=== PATIENT | female | born 1985 | race Hispanic/Latino ===

== ENCOUNTER 2022-09-26 23:17 | Emergency (ER) | payer OTHER ==
[~2022-09-26] VITALS: Ht 167.6 cm; Wt 97.5 kg
[2022-09-26 23:52] LABS: BASOPHILS % (AUTO) 0.4 % (0.0-5.0); EOSINOPHILS % (AUTO) 1.9 % (0.0-8.0); HEMATOCRIT 41.3 % (36-48); LYMPHOCYTES % (AUTO) 50.3 % (21.0-51.0); MEAN CORPUSCULAR HEMOGLOBIN 30.8 pg (27.0-33.0); MEAN CORPUSCULAR HGB CONC 33.9 g/dL (32.0-36.0); MONOCYTES % (AUTO) 7.3 % (3.0-13.0); PLATELET COUNT (AUTO) 260 K/uL (130-400); RED BLOOD CELL COUNT(AUTO) 4.54 MIL/uL (4.00-5.50); RED CELL DISTRIBUTION WIDTH 13.1 % (11.0-15.5); WHITE BLOOD COUNT (AUTO) 7.8 K/uL (4.8-10.8)
[2022-09-26 23:58] LABS: APPEARANCE,URINE CLEAR (CLEAR); BILIRUBIN,URINE NEGATIVE (NEGATIVE); COLOR,URINE LIGHT-YELLOW (YELLOW); GLUCOSE, URINE (UA) NEGATIVE (NEGATIVE); KETONES,URINE NEGATIVE (NEGATIVE); LEUKOCYTE ESTERASE ,URINE NEGATIVE Leu/uL (NEGATIVE); NITRATE,URINE NEGATIVE (NEGATIVE); PROTEIN,URINE NEGATIVE (NEGATIVE); UROBILINOGEN,URINE 0.2 mg/dL (0.2-1.0)
[2022-09-27] MEDS ORDERED: ONDANSETRON 4MG INJ IVP ONE
[2022-09-27 00:03] LABS: MUCUS,URINE RARE LPF (None Seen); SQUAMOUS EPITHELIAL CELL,UR MOD /HPF (0-2)
[2022-09-27 00:10] LABS: CREATININE 0.7 mg/dL (0.5-1.5); POTASSIUM 3.8 mmol/L (3.5-5.1)
[2022-09-27 00:15] LABS: ALBUMIN 3.7 g/dL (3.5-5.0); TOTAL PROTEIN, SERUM 7.4 g/dL (6.0-8.3)
[2022-09-27] MEDS ORDERED: KETOROLAC 15MG/ML VIAL (15MG/ML) IV ONE (00:30)
[2022-09-27] MEDS ORDERED: LACTULOSE 20 GM/30 ML UDCUP PO ONE (02:00)
[2022-09-27] MEDS ORDERED: POLY17PO4 PO (02:00)
[2022-09-27 03:01] VITALS: BP 121/70
== END 2022-09-27 03:10 | disposition home or self-care (01) ==
LOC: EDH 23:17
DX: R10.12 Left upper quadrant pain (principal); K59.00 Constipation, unspecified; M54.9 Dorsalgia, unspecified; Z90.49 Acquired absence of other specified parts of digestive tract; Z98.890 Other specified postprocedural states
CPT/HCPCS: 99285; 96374; 80053; 83690; 85025; 81001; 81025; 36415; 74176; 96375; J2405; J1885

== ENCOUNTER 2024-02-22 12:58 | Emergency (ER) | payer SELFPAY ==
[~2024-02-22] VITALS: Ht 167.6 cm; Wt 104.3 kg
[~2024-02-22 12:58] MED LIST: POLY17PO4 PO
[2024-02-22 13:22] LABS: BASOPHILS # (AUTO) 0.03 K/uL (0.00-0.20); BASOPHILS % (AUTO) 0.5 % (0.0-5.0); EOSINOPHILS # (AUTO) 0.18 K/uL (0.00-0.70); EOSINOPHILS % (AUTO) 2.8 % (0.0-8.0); HEMATOCRIT 37.9 % (36-48); IMMATURE GRANULOCYTE ABSOLUTE 0.01 K/uL (0-1); LYMPHOCYTES # (AUTO) 2.7 K/uL (1.0-4.8); LYMPHOCYTES % (AUTO) 42.3 % (21.0-51.0); MEAN CORPUSCULAR HEMOGLOBIN 30.1 pg (27.0-33.0); MEAN CORPUSCULAR HGB CONC 32.2 g/dL (32.0-36.0); MEAN CORPUSCULAR VOLUME 93.6 fL (79-99); MONOCYTES # (AUTO) 0.5 K/uL (0.1-1.0); NEUTROPHILS % (AUTO) 47.2 % (40.0-77.0); PLATELET COUNT (AUTO) 295 K/uL (130-400); RED BLOOD CELL COUNT(AUTO) 4.05 MIL/uL (4.00-5.50); RED CELL DISTRIBUTION WIDTH 13.4 % (11.0-15.5); WHITE BLOOD COUNT (AUTO) 6.4 K/uL (4.8-10.8)
[2024-02-22 13:34] LABS: CREATININE 0.6 mg/dL (0.5-1.0); POTASSIUM 3.7 mmol/L (3.5-5.1)
[2024-02-22 14:30] VITALS: BP 124/58; PULSE 58; RESP 20; TEMP 97; O2SAT 98
== END 2024-02-22 14:44 | disposition home or self-care (01) ==
LOC: EDH 12:58
DX: R07.89 Other chest pain (principal); Z79.899 Other long term (current) drug therapy; Z90.49 Acquired absence of other specified parts of digestive tract; Z98.890 Other specified postprocedural states
CPT/HCPCS: 36415; 71045; 80048; 84484; 85025; 93005

== ENCOUNTER 2024-12-03 00:29 | Emergency (ER) | payer MEDICAID ==
[~2024-12-03] VITALS: Ht 167.6 cm; Wt 99.3 kg
[2024-12-03 01:13] LABS: IMMATURE GRANULOCYTE ABSOLUTE 0.03 K/uL (0-1); NUCLEATED RED BLOOD CELLS 0.0 % (0.0-0.19); PLATELET COUNT (AUTO) 257 K/uL (130-400); RED BLOOD CELL COUNT(AUTO) 4.19 MIL/uL (4.00-5.50); RED CELL DISTRIBUTION WIDTH 13.2 % (11.0-15.5); WHITE BLOOD COUNT (AUTO) 8.0 K/uL (4.8-10.8)
[2024-12-03 01:14] LABS: CREATININE 0.5 mg/dL (0.5-1.0); GLOMERULAR FILTR. RATE CALC 124.0 mL/min (>90); GLUCOSE,RANDOM 114.0 mg/dL (70-105); SODIUM SERUM 143.0 mmol/L (136-145); UREA NITROGEN, BLOOD 15.0 mg/dL (7-18)
--- NOTE | 2024-12-03 02:31 | ERN ---
General Chief Complaint: Back Pain-No Injury Stated Complaint: C/O MID-BACK PAIN W/SOB, CHEST PRESSURE Time Seen by MD: 00:49 Time Seen by Midlevel: 00:49 Source: patient History of Present Illness Initial Comments Patient is a 38-year-old female with no significant past medical history presenting to the emergency department for evaluation of chest pressure with the mid back pain that started earlier today. Denies any other symptoms. Allergies: Coded Allergies: No Known Drug Allergies (Unverified Allergy, Unknown, 09/26/22) Home Meds Active Scripts Polyethylene Glycol 3350 (Miralax) 17 Gm Powd.pack, 17 GM PO DAILY, #250 G Prov:SANDRA VILLARREAL MD 09/27/22 Past Medical History Past Medical History: No Pertinent History Past Surgical History: Appendectomy, Social History Social History: Negative, Lives with family Female( History) History: Not Applicable ROS Dictation CONSTITUTIONAL: Negative except for HPI HEAD/FACE: Negative except for HPI EENT: Negative except for HPI RESPIRATORY: Negative except for HPI GASTROINTESTINAL/ABDOMINAL: Negative except for HPI GENITOURINARY: Negative except for HPI MUSCULOSKELETAL: Negative except for HPI INTEGUMENTARY: Negative except for HPI NEUROLOGICAL/PSYCH: Negative except for HPI HEMATOLOGIC/LYMPHATIC: Negative except for HPI All Systems Negative, Except as noted above. 13 point review of systems assessed and all negative except for above. Physical Exam Physical Exam Dictation Vital Signs reviewed General Appearance: Alert, oriented x 3, no acute distress, well developed, nourished. Head and Face: non-traumatic. Eyes: PERRL, pink conjunctivas, eyelid no trauma, anterior chamber with arcus senilis. Ears: Pinnas intact and no signs of trauma or erythema ear canals clear and no discharge TM no erythema Nose: No discharge, no bleeding. Oropharynx: Mouth normal, tongue pink, pharynx clear,no erythema, tonsils no exudates, no abscesses noted, mucous membrane moist Neck: Supple, non-tender, no thyromegaly, no masses, no JVD, no bruits Breast:Deferred Chest:No tenderness, no crepitus, no paradoxical movement, no retractions Lungs:Clear, well-ventilated, symmetric, no rales, no wheezing, no rhonchi, no stridor, good breath sounds bilaterally Heart: Regular rate, regular rhythm, no murmur, no gallops Vascular: no peripheral edema, Abdomen: Soft, positive bowel sounds, nondistended, no guarding, nontender, no rebound, no masses no hepatomegaly, no splenomegaly, no Gay's sign, no hernias. Rectal: Deferred Genital: Deferred Neurological: Normal speech, motor function intact, sensory function intact Musculoskeletal: Neck nontender, full range of motion, back nontender, full range of motion, Extremities: nontender, full range of motion Skin: Color pink, dry, no turgor, no rash, no lacerations, no abrasions, no contusions. Lymphatic: Deferred Results Laboratory and Microbiology Lab and Micro Result Laboratory Tests Test 12/03/24 00:56 White Blood Count 8.0 K/uL (4.8-10.8) Red Blood Count 4.19 MIL/uL (4.00-5.50) Hemoglobin 12.8 g/dL (12.0-16.0) Hematocrit 38.9 % (36-48) Mean Corpuscular Volume 92.8 fL (79-99) Mean Corpuscular Hemoglobin 30.5 pg (27.0-33.0) Mean Corpuscular Hemoglobin Concent 32.9 g/dL (32.0-36.0) Red Cell Distribution Width 13.2 % (11.0-15.5) Platelet Count 257 K/uL (130-400) Mean Platelet Volume 10.1 fL (7.5-10.5) Immature Granulocyte % (Auto) 0.4 % (0-1) Neutrophils (%) (Auto) 48.4 % (40.0-77.0) Lymphocytes (%) (Auto) 42.6 % (21.0-51.0) Monocytes (%) (Auto) 6.5 % (3.0-13.0) Eosinophils (%) (Auto) 1.6 % (0.0-8.0) Basophils (%) (Auto) 0.5 % (0.0-5.0) Neutrophils # (Auto) 3.9 K/uL (1.8-7.7) Lymphocytes # (Auto) 3.4 K/uL (1.0-4.8) Monocytes # (Auto) 0.5 K/uL (0.1-1.0) Eosinophils # (Auto) 0.13 K/uL (0.00-0.70) Basophils # (Auto) 0.04 K/uL (0.00-0.20) Absolute Immature Granulocyte (auto 0.03 K/uL (0-1) Nucleated Red Blood Cells 0.0 % (0.0-0.19) Sodium Level 143 mmol/L (136-145) Potassium Level 3.9 mmol/L (3.5-5.1) Chloride Level 106 mmol/L (101-111) Carbon Dioxide Level 30 mmol/L (21-32) Blood Urea Nitrogen 15 mg/dL (7-18) Creatinine 0.5 mg/dL (0.5-1.0) Glomerular Filtration Rate Calc 124 mL/min (>90) Random Glucose 114 mg/dL (70-105) H Total Calcium 9.1 mg/dL (8.5-10.1) Magnesium Level 1.70 mg/dL (1.80-2.40) L Troponin I High Sensitivity 6 ng/L (4-50) Lipase 41 U/L (16-77) Serum Test, Qualitative NEGATIVE (NEGATIVE) Labs Reviewed?: Yes MDM MDM: Differential diagnosis: Acute coronary syndrome, pneumonia, pneumothorax, dehydration, electrolyte abnormality There are no social concerns with this patient. Prescription drug management Prescriptions will include: None Medical management and examination interpretation discussions were had by me with other qualified healthcare professionals as indicated for the patient's care. ED Course Orders Procedure Category Date Status Time 12 Lead Ekg Tracing- EKG 12/03/24 Logged Technical 00:49 Cbc With Differential LAB 12/03/24 Complete 00:49 Basic Metabolic Panel LAB 12/03/24 Complete 00:49 Troponin I High LAB 12/03/24 Complete Sensitivity 00:49 Testing, LAB 12/03/24 Complete Serum Hcg 00:49 Chest 1vw RAD 12/03/24 Resulted 00:49 Magnesium LAB 12/03/24 Complete 00:49 Lipase LAB 12/03/24 Complete 00:49 Mr Venogram Brain MRI 12/03/24 Logged 02:35 Vital Signs Date Time Temp Pulse Resp B/P (MAP) Pulse Ox O2 Delivery O2 Flow Rate FiO2 12/03/24 00:31 98.4 80 20 133/63 99 Room Air HEART Score Response (Comments) Value History: Low suspicion (0) 0 EKG: Normal 0 Age: < 45yrs (0) 0 Risk Factors: No known risk factors (0) 0 Initial Troponin: Normal limit (0) 0 HEART Score Risk: Low Risk for MACE (1-3) Total 0 DX & DISP Disposition: Discharge Departure Impression: Primary Impression: Non-cardiac chest pain Condition: Stable Additional Instructions: Your blood work today is unremarkable. Your EKGs normal. Your cardiac enzymes are normal. Your chest x-ray is normal. Referrals: SELF,REFERRAL (PCP) Time of Disposition: 02:34 I have reviewed the case, and I agree with, Diagnosis and Plan I performed the substantive portion of the visit. I have reviewed and personally made and approve the management plan that is documented in the note by myself or the YESENIA. I acknowledge for responsibility for the patient's management plan. JULIENNE SONG Dec 03, 2024 02:31
--- NOTE | 2024-12-03 02:37 | HMCIMG ---
EXAM: CR Chest, 1 view CLINICAL HISTORY: Chest pain. COMPARISON: Chest radiograph dated 02/22/2024. FINDINGS: The lungs show no infiltrates or other acute findings. No pleural effusion or pneumothorax. The cardiomediastinal silhouette is within normal limits. No acute osseous abnormality. IMPRESSION: No acute cardiopulmonary process is evident. No interval changes. /[place]
[2024-12-03 02:44] VITALS: BP 128/66; PULSE 79; RESP 18; TEMP 98.6; O2SAT 100
--- NOTE | 2024-12-03 07:24 | EKG ---
[facility] Test Date: 2024-12-03 Test Time: 01:05:29 Pat Name: LANCE MURRAY Department: [facility] Room: Gender: F Choir Accompanist: [id number] : [id number] Requested By: JULIENNE SONG Order Number: [id number] Reading MD: Jones Pineda Measurements Intervals Call Rate: 80 P: 0 NE: 66 QRS: 31 QRSD: 100 T: -3 QT: 367 QTc: 423 Interpretive Statements Sinus rhythm Compared to ECG 02/22/2024 13:03:00 No significant changes Electronically Signed On 12-03-2024 16:46:47 CDT by Jones Pineda Please click the below link to view image of tracing.
== END 2024-12-03 02:42 | disposition home or self-care (01) ==
LOC: EDH 00:29
DX: R07.89 Other chest pain (principal); Z90.49 Acquired absence of other specified parts of digestive tract
CPT/HCPCS: 36415; 71045; 80048; 83690; 83735; 84484; 84703; 85025; 93005; 99285

== ENCOUNTER 2025-05-13 22:17 | Emergency (ER) | payer SELFPAY ==
[~2025-05-13] VITALS: Ht 157.5 cm; Wt 72.6 kg
[2025-05-13 22:51] LABS: NUCLEATED RED BLOOD CELLS 0.0 % (0.0-0.19); PLATELET COUNT (AUTO) 273.0 K/uL (130-400); RED BLOOD CELL COUNT(AUTO) 4.25 MIL/uL (4.00-5.50); RED CELL DISTRIBUTION WIDTH 13.5 % (11.0-15.5); WHITE BLOOD COUNT (AUTO) 7.9 K/uL (4.8-10.8)
--- NOTE | 2025-05-13 22:56 | ERN ---
ED Note History of Present Illness Stated Complaint: ANXIETY Chief Complaint: Anxiety/Panic Attack Time Seen by MD: 22:23 Dictation: The patient is a 39 female who presented to ER complaining of bilateral feet and along the lips tingling started4 hours prior to presentation to the ER. The patient denies fever, chills, chest pain, diarrhea. Past medical history. Allergies: Coded Allergies: No Known Drug Allergies (Unverified Allergy, Unknown, 09/26/22) Home Meds Active Scripts Multivitamin (Multi Vitamin Daily) 1 Each Tablet, 1 TAB PO DAILY for 30 Days, #30 TAB 0 Refills Prov:CLAIRE FRANCO MD 05/13/25 Hydroxyzine HCl (Hydroxyzine HCl) 10 Mg Tablet, 1 TAB PO TID for anxiety for 10 Days, #30 TAB 0 Refills Prov:CLAIRE FRANCO MD 05/13/25 Polyethylene Glycol 3350 (Miralax) 17 Gm Powd.pack, 17 GM PO DAILY, #250 G Prov:SANDRA VILLARREAL MD 09/27/22 Past Medical History Past Medical History: Anxiety Surgical History: Appendectomy, Social History: Negative, Lives with family History: Not Applicable Review of System Dictation NEGATIVE EXCEPT PER HPI Constitutional: Negative for fever,chills, and weight loss Eyes: Negative for injury, pain,redness, and discharge ENT: Negative for injury,pain or swelling Cardiovascular: denies chest pain, palpitations, and edema Respiratory: Negative for shortness of breath, cough, and wheezing, Abdomen/GI: Negative for abdominal pain, nausea, vomiting, diarrhea, and constipation Back: Negative for injury and pain : Negative for injury, bleeding and discharge MS/Extremity: Negative for injury and deformity Skin: Negative for rash, and discoloration Neuro: Negative for headache, weakness, numbness, seizure. She does report tingling along the lips and bilateral feet Psych: Negative for suicide ideation, homicidal ideation, and hallucinations Initial Vital Sign VS Vital Signs Date Time Temp Pulse Resp B/P (MAP) Pulse Ox O2 Delivery O2 Flow Rate FiO2 05/13/25 22:21 98.2 81 18 156/93 99 05/13/25 23:42 Room Air* 0 21 Physical Exam Dictation General: awake, alert, NAD Head/Face: Normocephalic, atraumatic Eyes: PERRL, EOMI, vision at baseline ENT: oral cavity clear, TMs clear, no signs of infection Neck: Trachea midline, supple, no nuchal rigidity Cardiovascular: RRR, normal S1/S2, No MRGs, no JVD Respiratory: CTAB, no respiratory distress, No rales or wheezes Abdomen: Soft , no tender Skin: Warm, dry, normal turgor, no rash MS/Extremity: Pulses equal, no cyanosis, neurovascular intact, FROM Neuro: COAx4, GCS 15, strength 5/5, CN 2-12 intact, normal cerebellar exam, normal gait, Psych: Normal behavior, mood, and affect normal Results (Laboratory/Radiology) Laboratory/Radiology Laboratory Tests Test 05/13/25 22:45 White Blood Count 7.9 K/uL (4.8-10.8) Red Blood Count 4.25 MIL/uL (4.00-5.50) Hemoglobin 13.2 g/dL (12.0-16.0) Hematocrit 39.5 % (36-48) Mean Corpuscular Volume 92.9 fL (79-99) Mean Corpuscular Hemoglobin 31.1 pg (27.0-33.0) Mean Corpuscular Hemoglobin Concent 33.4 g/dL (32.0-36.0) Red Cell Distribution Width 13.5 % (11.0-15.5) Platelet Count 273 K/uL (130-400) Mean Platelet Volume 10.3 fL (7.5-10.5) Nucleated Red Blood Cells 0.0 % (0.0-0.19) Sodium Level 141 mmol/L (136-145) Potassium Level 3.8 mmol/L (3.5-5.1) Chloride Level 108 mmol/L (101-111) Carbon Dioxide Level 28 mmol/L (21-32) Blood Urea Nitrogen 11 mg/dL (7-18) Creatinine 0.5 mg/dL (0.5-1.0) Glomerular Filtration Rate Calc 123 mL/min (>90) Random Glucose 90 mg/dL (70-105) Total Calcium 8.5 mg/dL (8.5-10.1) ED Course ED Course Orders Procedure Category Date Status Time Hydroxyzine 25mg Tab PHA 05/13/25 Complete (Atarax 25mg Tab) 23:00 Basic Metabolic Panel LAB 05/13/25 Complete 22:37 Cbc Without LAB 05/13/25 Complete Differential 22:39 Current Medications Medications (Trade) Dose Ordered Sig/Milagro Route PRN Reason Start Time Stop Time Status Last Admin Dose Admin Hydroxyzine HCl (ATArax 25MG TAB) 25 mg ONCE ONCE PO 05/13/25 23:00 05/13/25 23:01 DC Vital Signs Date Time Temp Pulse Resp B/P (MAP) Pulse Ox O2 Delivery O2 Flow Rate FiO2 05/13/25 23:42 98.8 72 18 149/73 100 Room Air* 0 21 05/13/25 22:21 98.2 81 18 156/93 99 Medical Decision Making MDM 31-year-old female who presented to the ER complaining of paresthesias around his her lips and bilateral foot. Electrolyte imbalance Anxiety Neuropathy Possible vitamin deficiency Laboratory workup electrolytes within normal limits I have recommended the patient to follow up with the PCP and do a vitamin workup to rule out deficiencies. DX & DISP Disposition: Discharge Departure Impression: Primary Impression: Paresthesia of both feet Additional Impressions: Paresthesia of lower lip, Anxiety Condition: Stable Scripts Multivitamin (Multi Vitamin Daily) 1 Each Tablet 1 TAB PO DAILY for 30 Days, #30 TAB 0 Refills Prov: CLAIRE FRANCO MD 05/13/25 Hydroxyzine HCl (Hydroxyzine HCl) 10 Mg Tablet 1 TAB PO TID for anxiety for 10 Days, #30 TAB 0 Refills Prov: CLAIRE FRANCO MD 05/13/25 Additional Instructions: RETURN TO ER FOR ANY ACUTE OR WORSENING SYMPTOMS. FOLLOW-UP IN 1-2 DAYS WITH PRIMARY PROVIDER FOR RECHECK OF TODAY'S SYMPTOMS. Referrals: SELF,REFERRAL (PCP) CLAIRE FRANCO MD May 13, 2025 22:56
[2025-05-13 23:00] LABS: CREATININE 0.5 mg/dL (0.5-1.0); GLOMERULAR FILTR. RATE CALC 123.0 mL/min (>90); GLUCOSE,RANDOM 90.0 mg/dL (70-105); SODIUM SERUM 141.0 mmol/L (136-145); UREA NITROGEN, BLOOD 11.0 mg/dL (7-18)
[2025-05-13] MEDS ORDERED: MULT-1203 PO (23:19)
[2025-05-13] MEDS ORDERED: HYDR-3830 PO (23:19)
[2025-05-13 23:42] VITALS: BP 149/73; PULSE 72; RESP 18; TEMP 98.8; O2SAT 100
== END 2025-05-13 23:45 | disposition home or self-care (01) ==
LOC: EDH 22:17
DX: R20.2 Paresthesia of skin (principal); F41.9 Anxiety disorder, unspecified; Z90.49 Acquired absence of other specified parts of digestive tract; Z98.890 Other specified postprocedural states
CPT/HCPCS: 36415; 80048; 85027; 99283